=== PATIENT | male | born 1985 | race Two or more races ===

== ENCOUNTER 2024-07-25 12:06 | Inpatient (IN) | payer MEDICAID, OTHER ==
[~2024-07-25] VITALS: Ht 172.7 cm; Wt 86.0 kg
[2024-07-25] MEDS ORDERED: MORPHINE SULFATE 4 MG/ML SYR/VIAL IV ONE (13:15)
[2024-07-25 13:25] VITALS: PULSE 97; RESP 20; O2SAT 98
[2024-07-25 13:35] LABS: Basophils # (auto) 0 10 ^3/uL (0-0.2); Basophils % (auto) 0.2 % (0.0-2.0); Eosinophils # (auto) 0 10 ^3/uL (0-0.8); Hematocrit 46.5 % (41.0-53.0); Hemoglobin 16.1 g/dL (13.5-17.5); Lymphocytes # (auto) 1.1 10 ^3/uL (0.4-5.4); Lymphocytes % (auto) 5.8 % (10.0-50.0); Mean Corpuscular Hemoglobin 31.6 pg (28.0-32.0); Mean Corpuscular Hgb Conc. 34.7 g/dL (32.0-36.0); Mean Corpuscular Volume 91.2 fL (80.0-100.0); Monocytes # (auto) 0.8 10 ^3/uL (0-1.3); Monocytes % (auto) 4.1 % (0.0-12.0); Neutrophils # (auto) 17.3 10 ^3/uL (1.6-8.6); Neutrophils % (auto) 89.9 % (37.0-80.0); Platelet Count (auto) 335 10^3/uL (140-450); Red Blood Cells 5.11 10^6/uL (4.5-5.90); Red Cell Distribution Width 13.6 % (11.8-14.3); White Blood Cell 19.3 10^3/uL (4.4-10.8)
[2024-07-25] MEDS: SODIUM CHLORIDE 0.9% 1,000 ML IV ONE ×3 (13:38→20:39)
[2024-07-25] MEDS: ONDANSETRON HCL 4 MG/2 ML VIAL IV ONE (13:38)
[2024-07-25 13:56] LABS: Alanine Aminotransferase 83 U/L (7-40); Albumin 5.3 g/dL (3.2-4.8); Alkaline Phosphatase 95 U/L (46-116); Anion Gap 8 (5-15); Aspartate Aminotransferase 42 U/L (13-40); BUN/Creatinine Ratio 12.2 (10.0-20.0); Blood Urea Nitrogen 14 mg/dL (9-23); Calcium 10.1 mg/dL (8.7-10.4); Carbon Dioxide 23 mmol/L (20-30); Chloride 103 mmol/L (98-107); Glucose 126 mg/dL (74-106); Lipase 31 U/L (12-53); Potassium 4.4 mmol/L (3.5-5.1); Sodium 134 mmol/L (136-145)
[2024-07-25 13:57] LABS: Bilirubin, Total 0.8 mg/dL (0.2-1.0); Total Protein 8.3 g/dL (5.7-8.2)
[2024-07-25] MEDS: PANTOPRAZOLE 40 MG/10 ML VIAL INJ IV ONE (14:05)
[2024-07-25 14:07] LABS: Partial Thromboplastin Time 25.8 SEC (24.5-34.5); Prothrombin Time 10.6 sec (9.3-11.8)
[2024-07-25] MEDS: fentaNYL CITRATE 100 MCG/2 ML VL IV ONE (14:16)
[2024-07-25] MEDS ORDERED: ACETAMINOPHEN 325 MG TAB PO PRN (16:15)
[2024-07-25] MEDS ORDERED: ONDANSETRON HCL 4 MG/2 ML VIAL IV PRN (16:15)
[2024-07-25] MEDS ORDERED: DOCUSATE SOD 100 MG CAP PO PRN (16:15)
[2024-07-25] MEDS: ENOXAPARIN SOD 40 MG/0.4 ML SYRINGE SC ONE (16:15)
[2024-07-25] MEDS: cefTRIAXone 1GM/50ML D5W 50 ML IV ONE (16:24)
[2024-07-25] MEDS: TAMSULOSIN HYDROCHLORIDE 0.4 MG CAP PO ONE (16:24)
[2024-07-25 16:53] LABS: Urine Bacteria None Seen /hpf (None Seen)
[2024-07-25 17:20] LABS: Amphetamine Screen, Urine Neg (NEGATIVE); Barbiturate Scree,Urine Neg (NEGATIVE); Benzodiazephine Screen, Urine Neg (NEGATIVE); Cannabinoid Screen, Urine Neg (NEGATIVE); Cocaine Screen, Urine Neg (NEGATIVE); Opiate Scree,Urine Neg (NEGATIVE); Phencyclidine Screen, Urine Neg (NEGATIVE)
[2024-07-25 17:23] LABS: Urine Blood 3+ /uL (Negative); Urine Clarity Turbid (Clear); Urine Color Light-Yellow (Yellow); Urine Protein, UAD TRACE (Negative); Urine Specific Gravity 1.018 (1.001-1.035); Urine Urobilinogen Normal (Negative); Urine WBC 4 /hpf (0 - 3); Urine pH 5.5 (5.0-9.0)
[2024-07-25 17:50] VITALS: BP 142/92; PULSE 74; RESP 20; TEMP 97.8; O2SAT 98
[2024-07-25] MEDS: MORPHINE SULFATE INJ 2 MG/ml SYRG IV PRN (18:48)
[2024-07-25] MEDS: SODIUM CHLORIDE 0.9% 1,000 ML IV SCH (18:49)
[2024-07-25 20:00] VITALS: PULSE 84; RESP 17; O2SAT 96
[2024-07-25] MEDS: MANNITOL FTV 25% 12.5 GM/50 ML 50 ML IV ONE (20:51)
[2024-07-25 21:00] VITALS: BP 156/96; PULSE 84; RESP 17; TEMP 98.7; O2SAT 96
[2024-07-25] MEDS: HYDROcodone-ACET 5/325MG TAB PO PRN (21:09)
[2024-07-25] MEDS: SODIUM CHLOR 0.9% PF (SALINE LOCK) 10ML VIAL/SYR IV SCH (22:26)
[2024-07-26] VITALS (9 sets, daily range): BP systolic 122–161; BP diastolic 78–93; PULSE 68–86; RESP 17–18; TEMP 97.9–98.3; O2SAT 93–100
[2024-07-26 07:18] LABS: Basophils # (auto) 0 10 ^3/uL (0-0.2); Basophils % (auto) 0.1 % (0.0-2.0); Eosinophils # (auto) 0 10 ^3/uL (0-0.8); Eosinophils % (auto) 0.1 % (0.0-7.0); Hematocrit 38.2 % (41.0-53.0); Hemoglobin 13.3 g/dL (13.5-17.5); Lymphocytes # (auto) 1.6 10 ^3/uL (0.4-5.4); Lymphocytes % (auto) 13.7 % (10.0-50.0); Mean Corpuscular Hemoglobin 31.7 pg (28.0-32.0); Mean Corpuscular Hgb Conc. 34.8 g/dL (32.0-36.0); Mean Corpuscular Volume 91.2 fL (80.0-100.0); Monocytes % (auto) 8.8 % (0.0-12.0); Neutrophils # (auto) 8.9 10 ^3/uL (1.6-8.6); Neutrophils % (auto) 77.3 % (37.0-80.0); Platelet Count (auto) 255 10^3/uL (140-450); Red Blood Cells 4.19 10^6/uL (4.5-5.90); Red Cell Distribution Width 13.4 % (11.8-14.3); White Blood Cell 11.6 10^3/uL (4.4-10.8)
[2024-07-26 07:22] LABS: Alanine Aminotransferase 47 U/L (7-40); Alkaline Phosphatase 73 U/L (46-116); Anion Gap 6 (5-15); BUN/Creatinine Ratio 7.7 (10.0-20.0); Blood Urea Nitrogen 10 mg/dL (9-23); Calcium 8.7 mg/dL (8.7-10.4); Carbon Dioxide 24 mmol/L (20-30); Chloride 107 mmol/L (98-107); Glucose 117 mg/dL (74-106); Potassium 3.7 mmol/L (3.5-5.1); Sodium 137 mmol/L (136-145)
[2024-07-26 07:23] LABS: Aspartate Aminotransferase 26 U/L (13-40)
[2024-07-26 07:24] LABS: Bilirubin, Total 0.7 mg/dL (0.2-1.0)
[2024-07-26 08:48] LABS: Hepatitis B Surface Antigen Negative (Negative)
[2024-07-26] MEDS: LIDOCAINE 2%HCL (LOCAL ANESTH.) INJ 10ml MDV ONE (08:53)
[2024-07-26] MEDS ORDERED: GLYCOPYRROLATE 0.2 MG/ML 1ML VIAL ONE (08:56)
[2024-07-26] MEDS ORDERED: KETOROLAC TROMETH 30 MG/ML 1ML VIAL ONE (08:56)
[2024-07-26] MEDS ORDERED: ONDANSETRON HCL 4 MG/2 ML VIAL ONE (08:56)
[2024-07-26] MEDS ORDERED: LIDOCAINE 2% TOPICAL JELLY 5 ML URJT TOP ONE (08:57)
[2024-07-26] MEDS ORDERED: PROPOFOL 10 MG/ML 20 ML IV ONE (08:57)
[2024-07-26] MEDS ORDERED: DexAMETHasone SOD PHOS 10MG/1ML VIAL INJ ONE (08:57)
[2024-07-26 09:09] LABS: Hepatitis C Antibody Negative (Negative)
[2024-07-26] MEDS: ceFAZolin 2 GM/D5W100ml 0 ML IV ONE (09:09)
[2024-07-26] MEDS: CIPROFLOXACIN 400MG/200ML 200 ML IV ONE (09:39)
[2024-07-26] MEDS ORDERED: KETAMINE 50mg/ML 1ml syringe ONE (09:41)
[2024-07-26] MEDS: IOHEXOL 300 MG/ML 100ML BOTTLE IJ ONE (09:52)
[2024-07-26] MEDS: TAMSULOSIN HYDROCHLORIDE 0.4 MG CAP PO SCH (10:00)
[2024-07-26] MEDS: IOHEXOL 180 MG/ML 20ML VIAL IJ ONE (10:35)
[2024-07-26] MEDS ORDERED: hydrALAZINE HCL 20 MG/ML VL IV PRN (11:30)
[2024-07-26] MEDS ORDERED: ePHEDrine SULFATE 50 MG/ML AMP IV PRN (11:30)
[2024-07-26] MEDS ORDERED: NALOXONE HCL 0.4 MG/ML VIAL IV PRN (11:30)
[2024-07-26] MEDS ORDERED: ONDANSETRON HCL 4 MG/2 ML VIAL IV PRN (11:30)
[2024-07-26] MEDS ORDERED: HYDROmorphone HCL 2 MG/ML VL/or syr IV PRN (11:30)
[2024-07-26] MEDS ORDERED: FLUMAZENIL 0.1 MG/ML INJ 10ML MDV IV PRN (11:30)
[2024-07-26] MEDS ORDERED: fentaNYL CITRATE 100 MCG/2 ML VL IV PRN (11:30)
[2024-07-26] MEDS: cefTRIAXone 1GM/50ML D5W 50 ML IV SCH (17:54)
[2024-07-26] MEDS: PANTOPRAZOLE 40 MG/10 ML VIAL INJ IV SCH (17:54)
[2024-07-27 01:00] VITALS: BP 125/78; PULSE 57; RESP 18; TEMP 98.3; O2SAT 96
[2024-07-27 05:00] VITALS: BP 122/67; PULSE 69; RESP 18; TEMP 98; O2SAT 97
[2024-07-27 06:12] LABS: Basophils # (auto) 0 10 ^3/uL (0-0.2); Basophils % (auto) 0.1 % (0.0-2.0); Eosinophils # (auto) 0 10 ^3/uL (0-0.8); Eosinophils % (auto) 0.1 % (0.0-7.0); Hematocrit 36.3 % (41.0-53.0); Hemoglobin 12.6 g/dL (13.5-17.5); Lymphocytes # (auto) 1.5 10 ^3/uL (0.4-5.4); Lymphocytes % (auto) 13.8 % (10.0-50.0); Mean Corpuscular Hemoglobin 31.7 pg (28.0-32.0); Mean Corpuscular Hgb Conc. 34.8 g/dL (32.0-36.0); Mean Corpuscular Volume 90.9 fL (80.0-100.0); Monocytes # (auto) 0.8 10 ^3/uL (0-1.3); Monocytes % (auto) 7.4 % (0.0-12.0); Neutrophils # (auto) 8.7 10 ^3/uL (1.6-8.6); Neutrophils % (auto) 78.6 % (37.0-80.0); Platelet Count (auto) 248 10^3/uL (140-450); Red Blood Cells 3.99 10^6/uL (4.5-5.90); Red Cell Distribution Width 13.3 % (11.8-14.3); White Blood Cell 11.1 10^3/uL (4.4-10.8)
[2024-07-27 06:22] LABS: Alanine Aminotransferase 40 U/L (7-40); Alkaline Phosphatase 67 U/L (46-116); Anion Gap 6 (5-15); BUN/Creatinine Ratio 14.4 (10.0-20.0); Blood Urea Nitrogen 13 mg/dL (9-23); Calcium 9.5 mg/dL (8.7-10.4); Carbon Dioxide 24 mmol/L (20-30); Chloride 109 mmol/L (98-107); Glucose 120 mg/dL (74-106); Potassium 3.8 mmol/L (3.5-5.1); Sodium 139 mmol/L (136-145)
[2024-07-27 06:23] LABS: Aspartate Aminotransferase 21 U/L (13-40); Bilirubin, Total 0.5 mg/dL (0.2-1.0); Total Protein 6.1 g/dL (5.7-8.2)
[2024-07-27 08:00] VITALS: PULSE 71; RESP 18; O2SAT 95
[2024-07-27 09:00] VITALS: BP 151/98; PULSE 71; RESP 18; TEMP 97.9; O2SAT 95
[2024-07-27] MEDS ORDERED: TAMS-35 PO (10:29)
[2024-07-27] MEDS ORDERED: HYDR-4902 PO (10:29)
[2024-07-27 10:54] VITALS: BP 151/98; PULSE 71; RESP 18; TEMP 97.9; O2SAT 95
[2024-07-27 13:00] VITALS: BP 143/99; PULSE 59; RESP 18; TEMP 98; O2SAT 97
== END 2024-07-27 14:30 | disposition home or self-care (01) | DRG 465 ==
LOC: ER 12:06 → OVERFLOW 16:27 → WEST WING 17:25
PROVIDERS: ADMIT Internal Medicine; ATTEND Internal Medicine
PROC: 0TF3XZZ Fragmentation in Right Kidney Pelvis, External Approach (ICD-10-PCS; 2024-07-26)
PROC: 0TF6XZZ Fragmentation in Right Ureter, External Approach (ICD-10-PCS; 2024-07-26)
PROC: 0T768DZ Dilation of Right Ureter with Intraluminal Device, Via Natural or Artificial Opening Endoscopic (ICD-10-PCS; principal; 2024-07-26 09:39)
DX: N13.2 Hydronephrosis with renal and ureteral calculous obstruction (principal); R71.0 Precipitous drop in hematocrit; D72.829 Elevated white blood cell count, unspecified; Z82.49 Family history of ischemic heart disease and other diseases of the circulatory system; Z83.3 Family history of diabetes mellitus; R31.9 Hematuria, unspecified
CPT/HCPCS: 36415; 74022; 74176; 76700; 76856; 80053; 80307; 81001; 83605; 83690; 84484; 85025; 85610; 85730; 86803; 86850; 86900; 86901; 87340; G0378; J1100; J1885; J2001; J2405; J2470; J2704; Q9965